=== PATIENT | female | born 2005 | race Caucasian/White ===

== ENCOUNTER 2024-02-20 22:26 | Emergency (ER) | payer OTHER, SELFPAY ==
[2024-02-20 22:37] LABS: Glucose - Point of Care 171 mg/dl (70-99)
--- NOTE | 2024-02-20 22:42 | ED.GENMED ---
History of Present Illness
General
Chief Complaint: Change in Mental Status
Source: patient and family
Exam Limitations: clinical condition
Time Seen by Provider: 02/20/24 22:32
History of Present Illness
History of Present Illness:
See MDM
Past History
Past History
ED Past Medical History: None
ED Past Surgical History: None
Social History
Tobacco: Non-smoker
Alcohol: None
Phy Exam
Physical Exam
Physical Exam:
See MDM
Course
Orders/Labs/Results
Orders:
Orders
02/20/24 22:39
Haloperidol Lactate [Haldol] 2 mg IM NOW STA
Lorazepam [Ativan] 1 mg IM NOW STA
02/20/24 22:40
CT Head W/o Iv Contrast Urgent
Comment:
Reason For Exam: altered, confused
0.9% Sodium Chloride 1000 ml [Nss] 1,000 ml IV BOLUS
Test Result ONCE
02/20/24 22:41
Haloperidol Lactate [Haldol] 5 mg .ROUTE .STK-MED ONE
02/20/24 22:42
Urinalysis Reflex To Culture Urgent
Urine Drug Abuse Screen Urgent
02/20/24 22:44
Lorazepam [Ativan] 1 mg IV NOW STA
02/20/24 22:47
Complete Blood Count/With Diff Urgent
Comprehensive Metabolic Panel Urgent
Free T4 Urgent
HCG, Serum Qualitative Screen Urgent
Magnesium Urgent
TSH Reflex To Free T4 Urgent
02/21/24 01:17
Crisis Consult Urgent
Reason for Consult: psychosis
Abnormal Lab Results
02/20/24 02/20/24
22:36 22:47
WBC 4.3 L 10^3/uL
(4.8-10.8)
RBC 3.63 L 10^6/uL
(4.20-5.40)
Hct 32.0 L %
(37.0-47.0)
MCH 33.3 H pg
(27.0-31.0)
MCHC 37.8 H g/dL
(33.0-37.0)
Sodium 131 L mmol/L
(135-145)
Chloride 87 L mmol/L
(98-107)
Creatinine 1.1 H mg/dL
(0.6-1.0)
Glucose 162 H mg/dl
(70-99)
AST 57 H U/L
(14-36)
ALT 38 H U/L
(0-35)
Albumin 5.3 H g/dl
(3.5-5.0)
TSH (Reflex) 9.74 H uIU/ml
(0.47-4.68)
POC Glucose 171 H mg/dl
(70-99)
02/20/24 22:47
02/20/24 22:47
Vital Signs
Initial and Last Documented VS:
Initial Vital Signs
Pulse Resp
114 18
02/20/24 22:33 02/20/24 22:33
Last Documented Vital Signs
Pulse Resp BP Pulse Ox
54 9 85/54 99
02/21/24 01:45 02/21/24 01:45 02/21/24 01:00 02/21/24 01:45
MDM/Problems Addressed
Differential Diagnosis Includes:
HPI and MDM Narrative:
18-year-old female presenting with mother and father for evaluation of altered mental status. Father noted that she was 'off' earlier today. However, symptoms escalated soon after dinner. She became confused and disoriented and now has trouble
speaking. Went into the room, patient is very thin. She is grasping at her parents and staring off. She has this groan-like sound but is not saying words. She is moving all 4 extremities.
Father and mother states that she came home from college yesterday. They realized that she had lost a lot of weight. I questioned whether or not this could be mental health. They state that bipolar runs in the family. I asked if she is under
increased stress. 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
Due to her mental health status, will give IV Ativan and IM Haldol to help calm her down to get the testing done. Will obtain CT head and basic blood work.
I had a long discussion with mother and father indicating that this is likely mental health but will rule out metabolic abnormalities in addition to any obvious intracranial hemorrhage or mass
Physical exam
General: Thin and frail, confused and disoriented. Grasping at staff members and family
HEENT: protecting airway
Neck: appears supple
CV: No evidence of cyanosis. Mild tachycardia. No murmur
Resp: No accessory muscle use. Lungs clear
Abd: Non-distended
Extremities: No deformities. No leg edema
Neuro: Disoriented, moving all 4 extremities, not communicative or following commands. Eyes are open and she is tracking
Psych: flat affect
Skin: Intact
Problems Addressed including Acute and Chronic Conditions affecting care:
1. Altered mental status
Acuity: acute
Prognosis: unstable
Details: Potentially in the setting of mental health given her age and increased stress and family history of bipolar. Will perform medical evaluation which includes basic blood work and CT head
2. [ ]
Acuity: acute
Prognosis: stable
Details:
3. [ ]
Acuity: acute
Prognosis: stable
Details:
4. [ ]
Acuity: acute
Prognosis: stable
Details:
5. [ ]
Acuity:
Prognosis:
Details:
Updates
12:30 AM on multiple reassessments, patient is sleeping. Patient appears to have come out of her psychiatric crisis per parents once she got Ativan. We discussed the elevated TSH but normal free T4. This should be reevaluated in the outpatient
setting. Once medically cleared, will have crisis evaluate
Remainder of the blood work without significant abnormality indicating that patient is otherwise medically cleared and will have crisis evaluate.
Patient woke up and is feeling much better. Clinically, she has improved drastically. She is holding a conversation and does not appear to be in acute psychosis. Crisis did evaluate and they discussed outpatient therapy. Crisis will set up
referral for virtual intensive outpatient therapy. Father feels very comfortable taking her home
Differential Diagnosis (but not limited to): Acute psychosis, hyponatremia, intracranial hemorrhage, drug intoxication
Testing considered: CT angiogram head and neck
Drug therapy (if applicable): OTC meds, please see d/c instruction regarding Rx drugs
Amount and/or Complexity of Data Reviewed
Clinical info obtained from: Mother and father
External data reviewed: N/A
Labs I independently reviewed (but not limited to): Elevated TSH
Radiology: The CT scan was personally and independently reviewed. In addition, official CT report reviewed.
Pulse Ox: not hypoxic
EKG independently reviewed: N/A
Customer Service Associate: N/A
Critical Care: N/A
Risk of Complication:
Social Determinants of health: Good social support
Discussed with other providers: Crisis
Escalation of Care includes Admit/Obs: After being observed in the Emergency Department, pt stable for discharge.
Occasional wrong word or 'sound a like' substitutions may have occurred due to the inherent limitations of voice recognition software. Read the chart carefully and recognize, using context, where substitutions have occurred.
*Critical Care Note
Total Time (30-74mins, 75-104mins- exclusive of procedures): Not Applicable
ED Attending Note
-
Portions of this chart may have been created with voice recognition software.� Occasional wrong word or��sound alike� substitutions may have occurred due to the inherent limitations of voice recognition software.
Discharge Plan
Departure
Patient Disposition: Home (Routine Discharge)
Date of Disposition: 02/21/24
Time of Disposition: 05:26
Patient with high blood pressure during this ER visit?: No
Discharge Problem:
Acute stress reaction
Prescriptions:
New
lorazepam 0.5 mg tablet
0.5 mg PO BID PRN (Reason: Anxiety) Qty: 14 0RF
Referrals:
Roberto Looney, DO [Family Provider] -
Activity Restrictions/Additional Instructions:
Please return for any worsening symptoms.
You may return at any time if you have further concerns.
Please follow up with your doctor at the first available appointment, preferably this week.
Please make an appointment to see the psychiatrist.
Interventions
Interventions:
*Risk Screen - Suicide Last Done: 02/20/24 22:40
*General Assessment Last Done: 02/20/24 22:40
*Neglect/Abuse Screening Last Done: 02/20/24 22:40
ED- Fall Risk Assessment Last Done: 02/20/24 23:17
*ED COVID-19 Vaccine History Last Done: 02/20/24 23:17
ED- Neurological Assessment Last Done: 02/20/24 23:17
Discharge Date and Time
Print Language: FRENCH
[2024-02-20] MEDS: ATIVAN 1 MG IV (22:45)
[2024-02-20] MEDS: HALDOL 2 MG IM (22:46)
[2024-02-20 23:05] LABS: HCG, Serum Qualitative Screen Negative
[2024-02-20 23:11] LABS: ALT (SGPT) 38 U/L (0-35); AST (SGOT) 57 U/L (14-36); Albumin 5.3 g/dl (3.5-5.0); Alkaline Phosphatase 42 U/L (38-126); Blood Urea Nitrogen 17 mg/dl (7-17); Calcium 9.8 mg/dl (8.4-10.2); Carbon Dioxide 28 mmol/L (22-30); Chloride 87 mmol/L (98-107); Glucose 162 mg/dl (70-99); Magnesium 2.3 mg/dl (1.6-2.3); Sodium 131 mmol/L (135-145); Total Bilirubin 1.1 mg/dl (0.2-1.3); Total Protein 7.3 g/dl (6.3-8.2); eGFR > 60.00
[2024-02-20 23:28] VITALS: BP 86/55
[2024-02-20] MEDS: NSS 1000 IV (23:32)
[2024-02-20 23:44] LABS: TSH Reflex To Free T4 9.74 uIU/ml (0.47-4.68)
[2024-02-21] VITALS (9 sets, daily range): BP systolic 84–105; BP diastolic 52–72
[2024-02-21 00:18] LABS: Free T4 1.53 ng/dl (0.78-2.19)
[2024-02-21 01:13] LABS: Hemoglobin 12.1 g/dL (12.0-16.0); Mean Corp Hgb Conc. 37.8 g/dL (33.0-37.0); Mean Corpuscular Hgb 33.3 pg (27.0-31.0); Mean Corpuscular Volume 88.2 fL (81.0-99.0); Mean Platelet Volume 9.7 fL (7.4-10.4); Nucleated Red Blood Cells % 0 %; Platelet Count 232 10^3/uL (130-400); Red Blood Cell Count 3.63 10^6/uL (4.20-5.40); Red Cell Dist. Width 13.7 % (11.5-14.5); White Blood Cell Count 4.3 10^3/uL (4.8-10.8)
[2024-02-21 06:34] LABS: Urine Albumin Negative (Neg - Trace); Urine Bilirubin Negative (Negative); Urine Character Clear (Clear); Urine Color Yellow; Urine Glucose Negative (Negative); Urine Ketone Negative (Negative); Urine Leukocyte Negative (Negative); Urine Nitrite Negative (Negative); Urine Occult Blood Negative (Negative); Urine Urobilinogen Negative (Neg - 1+)
[2024-02-21 06:48] LABS: Amphetamines Negative (Negative); Barbiturates Negative (Negative); Benzodiazepines Positive (Negative); Buprenorphine Negative (Negative); Cocaine Negative (Negative); Marijuana Negative (Negative); Methadone Negative (Negative); Methamphetamines Negative (Negative); Opiates Negative (Negative); Phencyclidine Negative (Negative); Tricyclic Antidepressants Negative (Negative)
[2024-02-21 07:12] LABS: Fentanyl, Urine Negative (Negative)
== END 2024-02-21 06:23 | disposition home or self-care (01) ==
LOC: EMR 22:26
PROVIDERS: EMERGENCY PHYSICIAN Student in an Organized Health Care Education/Training Program; FAMILY PHYSICIAN Pediatrics
DX: F43.0 Acute stress reaction (principal)
CPT/HCPCS: 99284; 96374; 96361; 96372; 70450; 80053; 80306; 80307; 81003; 82962; 83735; 84439; 84443; 84703; 85025